=== PATIENT | female | born 1990 | race African-American/Black ===

== ENCOUNTER 2020-03-20 04:19 | Emergency (ER) | payer OTHER, SELFPAY ==
[2020-03-20 04:26] VITALS: BP 149/71; PULSE 58; RESP 16; TEMP 36.6; O2SAT 99; BMI 23.6
[2020-03-20 05:25] VITALS: BP 125/75; PULSE 50; RESP 17; O2SAT 100
--- NOTE | 2020-03-20 06:20 | ED_ITS ---
HPI - General Adult General Chief complaint: General Medical Stated complaint: withdrawal Time Seen by Provider: 03/20/20 05:03 Source: patient and EMS Mode of arrival: EMS Limitations: no limitations History of Present Illness HPI narrative: this is a 30-year-old female who is brought in by EMS after being picked up at a hotel where patient was staying with her boyfriend. As per reports she was attempting to go through withdrawals from heroin and patient reports that she last used the day before yesterday. She states that she is going through withdrawals and complains of some nausea and abdominal discomfort and wishes to start on Suboxone. Otherwise, she denies fevers, chills, shortness of breath, chest pain /palpitations. Related Data Home Medications Medication Instructions Recorded Confirmed No Known Home Meds 03/20/20 03/20/20 Allergies Allergy/AdvReac Type Severity Reaction Status Date / Time doxycycline Allergy Diarrhea Verified 03/20/20 05:23 metronidazole [From Flagyl] Allergy Diarrhea Verified 03/20/20 05:22 Review of Systems Review of Systems: Pertinent positives and negatives as stated in HPI 10 point review of systems otherwise negative. PMFSH Past Medical History Source: nursing notes reviewed Medical History Asthma Hypertension Social History Social History Alcohol intake: never Smoking Status: Current every day smoker Smoked in Last 30 Days: Yes Use of substances other than those prescribed or required for medical reasons: Yes Substance Use Type: Heroin Substance Use Frequency: Daily Last Used Substance: Days (ago) Any prior treatment program specific to substance use: No Advance Directives: No Advance Directives Information Provided: No Physical Exam Vital Signs: Vital Signs: Last Vital Signs Temp 97.8 F 03/20/20 04:26 Pulse 50 03/20/20 05:25 Resp 17 03/20/20 05:25 BP 125/75 03/20/20 05:25 Pulse Ox 100 03/20/20 05:25 Body Mass Index 23.6 VITAL SIGNS: Reviewed. GENERAL: Well developed, well nourished, in no acute distress. HEAD: Normocephalic/atraumatic, EYES: PERRLA, EOMI intact without pain, no nystagmus/pallor/icterus noted EARS: Ext canals without abnormality, TMs non-bulging and non-erythematous NOSE: Nares patent bilateral OROPHARYNX: no oral lesions noted, posterior pharynx clear and non-erythematous without noted tonsillar enlargement/erythema/exudates NECK: Supple, no adenopathy LUNGS: Normal breath sounds. No adventitious sounds or accessory muscle use. SpO2<100> CARDIOVASCULAR: Regular rate and rhythm without noted murmurs, no JVD or lower extremity edema. ABDOMEN: Soft, non-tender, non-distended with bowel sounds. No rigidity. No guarding. No palpable masses or hernias noted MUSCULOSKELETAL: No tenderness, deformities, or effusions noted on gross inspection. EXTREMITIES: No cyanosis, clubbing or edema. SKIN: Inspection of the skin reveals no rashes, ulcerations, jaundice, pallor, or petechiae. NEUROLOGIC: Alert and oriented x 4. Strength and sensation to light touch were grossly intact x 4. Course Course Course Narrative: This is a 30-year-old female with history and clinical presentation mildly suggestive withdrawals, although patient is scoring very low on the COW scale. Patient is noted to be resting comfortably on the gurney and does not appear to be experiencing any anxiety/agitation. Review of all investigations is without acute abnormalities other than a noted apparent UTI with presence of leukocyte esterase / wbc's as well as the presence of blood. Patient will be provided with empiric levofloxacin 500 mg. Reevaluation(s) Reevaluation #1: Patient signed out to [facility]. Plan: Treat for UTI and eval for possible renal colic with CT and treat with combination analgesics as well as placing care Team consult. Time: 09:32 Medical Decision Making Lab Data Result diagrams: 03/20/20 09:00 03/20/20 06:45 Labs: Lab Results 03/20/20 03/20/20 03/20/20 Range/Units 06:45 06:45 06:45 WBC Cancelled RBC Cancelled Hgb Cancelled Hct Cancelled MCV Cancelled MCH Cancelled MCHC Cancelled RDW Cancelled Plt Count Cancelled MPV Cancelled Immature Gran % (Auto) Cancelled Neut % (Auto) Cancelled Lymph % (Auto) Cancelled [place] % (Auto) Cancelled Eos % (Auto) Cancelled Baso % (Auto) Cancelled Lymph # (Auto) Cancelled [place] # (Auto) Cancelled Eos # (Auto) Cancelled Baso # (Auto) Cancelled Abs Immat Gran (auto) Cancelled Absolute Neuts (auto) Cancelled Absolute Nucleated RBC Cancelled Nucleated RBC % (auto) Cancelled Sodium 140 (135-145) mmol/L Potassium 4.3 (3.3-5.1) mmol/l Chloride 103 (96-108) mmol/L Carbon Dioxide 27 (22-29) mmol/L Anion Gap 14 (12-20) BUN 9 (9-16) mg/dL Creatinine 0.79 (0.5-1.4) mg/dL Estim Creat Clear Calc 108.8 Estimated GFR > 60 Random Glucose 103 (60-115) mg/dL Calcium 9.5 (8.4-10.2) mg/dL Total Bilirubin 0.4 (0.0-1.0) mg/dL AST 16 (5-31) U/L ALT 17 (0-31) U/L Alkaline Phosphatase 68 (39-117) U/L Total Protein 9.0 H (6.5-8.0) g/dL Albumin 4.2 (3.5-5.0) g/dL Beta HCG, Quant < 2 mIU/mL Urine Color Urine Appearance Urine pH (5.0-8.0) Ur Specific [place] (1.005-1.025) Urine Protein (NEG-TRACE) MG/DL Urine Glucose (UA) (NEG) MG/DL Urine Ketones (NEG) MG/DL Urine Blood (NEG) Urine Nitrite (NEG) Ur Leukocyte Esterase (NEG) Urine RBC (0) /HPF Urine WBC (0-4) /HPF Ur Squamous Epith Cells /LPF Urine Bacteria /LPF Urine Mucus /LPF Urine Test (NEGATIVE) Urine Opiates Screen (Not Detect) Ur Barbiturates Screen (Not Detect) Ur Phencyclidine Scrn (Not Detect) Ur Amphetamines Screen (Not Detect) U Benzodiazepines Scrn (Not Detect) Urine Cocaine Screen (Not Detect) U Marijuana (THC) Screen (Not Detect) Ethyl Alcohol < 10 mg/dL 03/20/20 03/20/20 03/20/20 Range/Units 08:44 08:44 09:00 WBC 8.2 RBC 5.04 Hgb 13.3 Hct 41.1 MCV 81.5 MCH 26.4 L MCHC 32.4 RDW 13.2 Plt Count 334 MPV 9.8 Immature Gran % (Auto) 0.2 Neut % (Auto) 79.0 H Lymph % (Auto) 18.3 L [place] % (Auto) 2.4 Eos % (Auto) 0.0 Baso % (Auto) 0.1 Lymph # (Auto) 1.5 [place] # (Auto) 0.2 Eos # (Auto) 0.0 Baso # (Auto) 0.0 Abs Immat Gran (auto) 0.02 Absolute Neuts (auto) 6.5 Absolute Nucleated RBC 0.000 Nucleated RBC % (auto) 0.0 Sodium (135-145) mmol/L Potassium (3.3-5.1) mmol/l Chloride (96-108) mmol/L Carbon Dioxide (22-29) mmol/L Anion Gap (12-20) BUN (9-16) mg/dL Creatinine (0.5-1.4) mg/dL Estim Creat Clear Calc Estimated GFR Random Glucose (60-115) mg/dL Calcium (8.4-10.2) mg/dL Total Bilirubin (0.0-1.0) mg/dL AST (5-31) U/L ALT (0-31) U/L Alkaline Phosphatase (39-117) U/L Total Protein (6.5-8.0) g/dL Albumin (3.5-5.0) g/dL Beta HCG, Quant mIU/mL Urine Color DARK YELLOW Urine Appearance CLOUDY Urine pH 7.0 (5.0-8.0) Ur Specific [place] 1.025 (1.005-1.025) Urine Protein 1+ H (NEG-TRACE) MG/DL Urine Glucose (UA) NEG (NEG) MG/DL Urine Ketones 15 (NEG) MG/DL Urine Blood 3+ H (NEG) Urine Nitrite NEG (NEG) Ur Leukocyte Esterase 2+ H (NEG) Urine RBC 10-14 H (0) /HPF Urine WBC TNTC H (0-4) /HPF Ur Squamous Epith Cells 2+ /LPF Urine Bacteria 2+ /LPF Urine Mucus 3+ /LPF Urine Test NEGATIVE (NEGATIVE) Urine Opiates Screen POSITIVE H (Not Detect) Ur Barbiturates Screen Not Detected (Not Detect) Ur Phencyclidine Scrn Not Detected (Not Detect) Ur Amphetamines Screen Not Detected (Not Detect) U Benzodiazepines Scrn Not Detected (Not Detect) Urine Cocaine Screen POSITIVE H (Not Detect) U Marijuana (THC) Screen POSITIVE H (Not Detect) Ethyl Alcohol mg/dL Discharge Plan Discharge Prescriptions: No Action No Known Home Meds RF: 0
--- NOTE | 2020-03-20 07:09 | PC.NURSE ---
report taken from jeffrey self pt here for c/o etoh withdrawal. ciwa scale completed, per previous shift rn no noted s/s etoh withdrawal. pt also admits to iv drug abuse. upon first contact pt sleeping, sinus aviva on tele 45 bpm. pt easily arousable to verbal stimuli, temp checked, 99.1. complaining of abd pain at this time. provider aware.
[2020-03-20 07:16] LABS: Ethanol < 10 mg/dL
[2020-03-20 07:19] LABS: Alanine Aminotransferase 17 U/L (0-31); Albumin Level 4.2 g/dL (3.5-5.0); Alkaline Phosphatase 68 U/L (39-117); Anion Gap 14 (12-20); Aspartate Amino Transferase 16 U/L (5-31); Bilirubin Total 0.4 mg/dL (0.0-1.0); Blood Urea Nitrogen 9 mg/dL (9-16); Calcium 9.5 mg/dL (8.4-10.2); Carbon Dioxide 27 mmol/L (22-29); Chloride 103 mmol/L (96-108); Creatinine Clr Calc Pharmacy 108.8; Estimated Glomerular Filt Rate > 60; Glucose Random 103 mg/dL (60-115); Potassium 4.3 mmol/l (3.3-5.1); Sodium 140 mmol/L (135-145)
[2020-03-20 08:42] LABS: HCG Quantitative < 2 mIU/mL
--- NOTE | 2020-03-20 08:55 | PC.NURSE ---
pt ambulating to and from bathroom w steady gait for ua spec. phlebotomy called for difficult iv stick. pt expressed wanting detox. care team aware.
[2020-03-20 08:58] LABS: Glucose Urine UA NEG (NEG); Leukocyte Esterase Urine 2+ (NEG); Nitrite Urine NEG (NEG); Specific Gravity - Urine 1.025 (1.005-1.025); Urine Blood 3+ (NEG); Urine Ketones 15 MG/DL (NEG); Urine Protein 1+ MG/DL (NEG-TRACE)
--- NOTE | 2020-03-20 09:01 | MHC.CARE ---
Pt interested in Detox. [facility] is currently full, Pt placed on the wait list. [facility] in [place] has bed availability- ED summary faxed to [facility].
[2020-03-20 09:04] LABS: Appearance Urine CLOUDY; Color Urine DARK YELLOW
[2020-03-20 09:05] LABS: UPreg QC Valid YES; Urine Pregnancy NEGATIVE (NEGATIVE)
[2020-03-20 09:08] LABS: MANUAL DIFF FLAG NO
[2020-03-20 09:12] LABS: Basophils Percent Auto 0.1 % (0-2); Hematocrit 41.1 % (37-47); Hemoglobin 13.3 g/dl (12.0-16.0); Imm Gran Abs Auto 0.02 X10*3/uL (0.00-0.03); Imm Gran Pct Auto 0.2 % (0.0-0.4); Lymphocytes Absolute Auto 1.5 X10*3/uL (1.2-4.9); Lymphocytes Percent Auto 18.3 % (20-40); Mean Corpuscular HGB Conc 32.4 g/dl (31.0-35.0); Mean Corpuscular Hemoglobin 26.4 pg (27.0-33.0); Mean Corpuscular Volume 81.5 fL (80-98); Mean Platelet Volume 9.8 fL (9.4-12.3); Monocytes Absolute Auto 0.2 X10*3/uL (0.1-1.2); Monocytes Percent Auto 2.4 % (2-11); Neutrophils Absolute Auto 6.5 X10*3/uL (2.0-8.3); Platelet Count 334 X10*3/uL (160-400); Red Blood Count 5.04 X10*6/uL (4.20-5.50); Red Cell Distribution Width 13.2 % (11.0-16.0); White Blood Count 8.2 X10*3/uL (4.8-10.8)
[2020-03-20 09:13] LABS: Bacteria Urine 2+ /LPF; Mucus Urine 3+ /LPF; Squamous Epithelial Cell Urine 2+ /LPF; WBC Urine TNTC /HPF (0-4)
[2020-03-20 09:17] LABS: Amphetamine Screen Urine Not Detected (Not Detect); Barbiturates, Urine Not Detected (Not Detect); Benzodiazepines Screen Urine Not Detected (Not Detect); Cannabinoid Screen Urine POSITIVE (Not Detect); Cocaine Screen Urine POSITIVE (Not Detect); Opiate Screen Urine POSITIVE (Not Detect); Phencyclidine Screen Urine Not Detected (Not Detect)
--- NOTE | 2020-03-20 09:17 | PC.NURSE ---
phleb at bedside for blood draw
--- NOTE | 2020-03-20 09:33 | CT_ITS ---
EXAMINATION: CT abdomen pelvis wo con CLINICAL INFORMATION: Reason for Exam pt c lower/left back pain ? stones c hematuria COMPARISON: No prior CT available for comparison. TECHNIQUE: Multidetector volumetric imaging was performed from the superior aspect of the liver through the pubic symphysis , noncontrasted study. Sagittal and coronal reformatted images were obtained on the technologist's workstation. This CT examination was performed using dose optimization techniques as appropriate, variously including the following: *Automated exposure control *Adjustment of mA and/or kV according to patient size (this includes techniques or standardized protocols for targeted exams where dose is matched to indication/reason for exam; i.e. extremities or head) *Use of iterative reconstruction technique DLP: 376 mGy-cm FINDINGS: LOWER THORAX: Included lung bases are clear. HEPATOBILIARY: No focal hepatic lesions. No biliary ductal dilatation. GALLBLADDER: Gallbladder unremarkable. SPLEEN: Spleen is normal in size. PANCREAS: No focal mass or ductal dilatation. STOMACH AND GASTROINTESTINAL TRACT: Stomach is grossly unremarkable. Evaluation of the bowels is limited due to lack of oral and IV contrast and crowding of bowel loops, paucity of intraperitoneal fat. No evidence of bowel obstruction. No CT evidence of appendicitis. ADRENALS: No adrenal nodules. KIDNEYS/URETERS: No hydronephrosis, stones or solid mass lesions. URINARY BLADDER: Urinary bladder is decompressed unopacified not well assessed. PELVIC VISCERA: Excess amount of stool in the rectum suggests possible constipation. PERITONEUM: No free air or fluid. LYMPH NODES: There are enlarged lymph nodes in the inguinal region bilaterally right more than left, largest lymph node in the right inguinal region measure up to 1.4 x 2.6 cm. Evaluation for lymph nodes is rather difficult due to lack of contrast and paucity of intra-abdominal and retroperitoneal fat. VASCULAR:Abdominal aorta normal in size, no aneurysm found. BONES, ABDOMINAL WALL AND SOFT TISSUES: There is soft tissue opacity paraumbilical region subcutaneous fat roughly 1.8 x 1.3 cm the attenuation of its matrix is 52 Hounsfield units, this is higher than expected for simple fluid, differential would include blood which could be sequela of endometrioma, versus a scar. Versus others. There are no fractures. Skeletal structures are otherwise unremarkable. CT/CT abdomen pelvis wo con IMPRESSION: 1. No CT evidence of hydronephrosis or kidney stones to explain patient's left pain. 2. Excess amount of stool in the rectum suggests possible constipation/fecal impaction. 3. Bilateral inguinal lymphadenopathy right more than left uncertain etiology. Evaluation for intra-abdominal and retroperitoneal lymph nodes is rather difficult due to lack of IV contrast and paucity of intra-abdominal fat. Attention to clinical correlation. May consider follow-up contrast enhanced study. 4. Nonspecific soft tissue opacity periumbilical region as described above. This also can be evaluated with contrast enhanced the study.
[2020-03-20] MEDS: Acetaminophen 325 MG TABLET 650 MG PO (10:06)
[2020-03-20] MEDS: Ketorolac Tromethamine 30 MG/ML VIAL IM (10:06)
--- NOTE | 2020-03-20 14:01 | PC.NURSE ---
pyxis medications unavailable at this time, pt updated on delay in medication administration by provider
[2020-03-20] MEDS: Ketorolac Tromethamine 15 MG/ML VIAL IM (15:37)
[2020-03-20] MEDS: Lactulose 20 GM/30 ML SOLUTION 30 GM PO (17:29)
[2020-03-20] MEDS: Magnesium Citrate 300 ML SOLUTION PO (17:30)
--- NOTE | 2020-03-20 17:58 | PC.NURSE ---
pt continues to await call back from [facility] about bed. pt resting in bed, rr even/unlabored.
[2020-03-20 17:59] VITALS: PULSE 72
--- NOTE | 2020-03-20 18:48 | PC.NURSE ---
contact made to Radha from care team, patient to get ride to [place] between 8pm-9pm via taxi or lyft.
[2020-03-20 20:39] VITALS: PULSE 65; RESP 18; O2SAT 100
== END 2020-03-20 20:41 ==
PROVIDERS: Physician Assistant Medical; Emergency Provider Student in an Organized Health Care Education/Training Program
DX: F11.23 Opioid dependence with withdrawal (principal); F17.200 Nicotine dependence, unspecified, uncomplicated; Z71.6 Tobacco abuse counseling; Z71.51 Drug abuse counseling and surveillance of drug abuser
CPT/HCPCS: 36415; 74176; 80053; 80307; 80320; 81001; 81003; 81025; 84702; 85025; 87086; 96372; 99285; J1885